=== PATIENT | male | born 1955 | race Caucasian/White ===

== ENCOUNTER → 2021-06-10 | Outpatient (REF) | payer MEDICARE, BC ==
[2021-06-10 17:17] LABS: APPEARANCE, URINE CLEAR (CLEAR); BACTERIA, URINE AUTO NEGATIVE (NEGATIVE); BILIRUBIN, URINE AUTO NEGATIVE (NEGATIVE); BLOOD, URINE BLOOD 1+ (NEGATIVE); COLOR, URINE YELLOW (YELLOW); GLUCOSE, URINE (UA) AUTO NEGATIVE (NEGATIVE); KETONE, URINE AUTO NEGATIVE (NEGATIVE); LEUKOCYTE ESTERASE, URINE AUTO NEGATIVE (NEGATIVE); NITRITE, URINE AUTO NEGATIVE (NEGATIVE); PROTEIN, URINE AUTO NEGATIVE (NEGATIVE); RBC, URINE AUTO 2 /HPF (0-3); SPECIFIC GRAVITY URINE AUTO 1.014 (1.002-1.035); SQUAMOUS EPITHELIAL CELL UR AU 0 /HPF (0-6); UROBILINOGEN, URINE AUTO 0.2 mg/dL (0.0-2.0); WBC, URINE AUTO 0 /HPF (0-3)
== END ==
LOC: M SMT 16:48
PROVIDERS: ATTEND Nurse Practitioner Family
DX: R35.1 Nocturia (principal)
CPT/HCPCS: 51798; 81001; 87086; G0463

== ENCOUNTER → 2021-08-11 | Outpatient (REF) | payer BC, MEDICARE ==
[2021-08-11 18:10] LABS: APPEARANCE, URINE CLEAR (CLEAR); BACTERIA, URINE AUTO NEGATIVE (NEGATIVE); BILIRUBIN, URINE AUTO NEGATIVE (NEGATIVE); BLOOD, URINE BLOOD NEGATIVE (NEGATIVE); COLOR, URINE YELLOW (YELLOW); GLUCOSE, URINE (UA) AUTO NEGATIVE (NEGATIVE); KETONE, URINE AUTO NEGATIVE (NEGATIVE); LEUKOCYTE ESTERASE, URINE AUTO NEGATIVE (NEGATIVE); NITRITE, URINE AUTO NEGATIVE (NEGATIVE); PROTEIN, URINE AUTO NEGATIVE (NEGATIVE); RBC, URINE AUTO 1 /HPF (0-3); SPECIFIC GRAVITY URINE AUTO 1.017 (1.002-1.035); SQUAMOUS EPITHELIAL CELL UR AU 0 /HPF (0-6); UROBILINOGEN, URINE AUTO 0.2 mg/dL (0.0-2.0); WBC, URINE AUTO 1 /HPF (0-3)
== END ==
LOC: M SMT 16:39
PROVIDERS: ATTEND Urology
DX: R35.1 Nocturia (principal)
CPT/HCPCS: 81001; G0463

== ENCOUNTER → 2022-04-21 | Outpatient (REF) | payer MEDICARE ==
[2022-04-21 13:42] LABS: APPEARANCE, URINE CLEAR (CLEAR); BACTERIA, URINE AUTO NEGATIVE (NEGATIVE); BILIRUBIN, URINE AUTO NEGATIVE (NEGATIVE); BLOOD, URINE BLOOD NEGATIVE (NEGATIVE); COLOR, URINE YELLOW (YELLOW); GLUCOSE, URINE (UA) AUTO NEGATIVE (NEGATIVE); KETONE, URINE AUTO NEGATIVE (NEGATIVE); LEUKOCYTE ESTERASE, URINE AUTO NEGATIVE (NEGATIVE); NITRITE, URINE AUTO NEGATIVE (NEGATIVE); PROTEIN, URINE AUTO NEGATIVE (NEGATIVE); RBC, URINE AUTO 1 /HPF (0-3); SPECIFIC GRAVITY URINE AUTO 1.013 (1.002-1.035); SQUAMOUS EPITHELIAL CELL UR AU 0 /HPF (0-6); UROBILINOGEN, URINE AUTO 0.2 mg/dL (0.0-2.0); WBC, URINE AUTO 1 /HPF (0-3)
== END ==
LOC: M SMT 12:54
PROVIDERS: ATTEND Urology
DX: Z79.899 Other long term (current) drug therapy (principal); Z80.51 Family history of malignant neoplasm of kidney

== ENCOUNTER → 2022-05-22 | Outpatient (CLI) | payer MEDICARE ==
[~2022-05-22] MED LIST: ASPI81TA26 PO; FLOM0.4C39 PO; OXYB10TA23 PO; PRAV40TA2 PO; TADA5TAB PO
== END ==
LOC: M LABSMTC 09:49
PROVIDERS: ATTEND Anesthesiology
DX: Z01.812 Encounter for preprocedural laboratory examination (principal); Z20.822 Contact with and (suspected) exposure to COVID-19

== ENCOUNTER 2022-05-26 11:53 | Day surgery (SDC) | payer MEDICARE ==
[~2022-05-26] VITALS: Ht 182.9 cm; Wt 95.3 kg
[~2022-05-26 11:53] MED LIST changes: +CIPROFLOXACIN 400 MG in IV 1 EA IV ONE
[2022-05-26] MEDS ORDERED: LIDOCAINE 2% 100MG/5ML SDV (FOR ANES.) As Ordered ONE (12:31)
[2022-05-26] MEDS ORDERED: propofoL 200 MG/20 ML VIAL As Ordered ONE (12:31)
[2022-05-26] MEDS ORDERED: fentaNYL 100 MCG/2 ML INJECTION As Ordered ONE ×3 (12:31→14:48)
[2022-05-26] MEDS ORDERED: MIDAZOLAM INJ 2MG/2ML VIAL (J2250 PER 1MG) As Ordered ONE (12:31)
[2022-05-26] MEDS ORDERED: ROCURONIUM BROMIDE 50 MG/5 ML VIAL As Ordered ONE (12:31)
[2022-05-26] MEDS ORDERED: ONDANSETRON 4MG 2ML VIAL As Ordered ONE (12:32)
[2022-05-26] MEDS ORDERED: dexameTHASONE 4 MG/ML 1ML VIAL (J1100 PER 1MG) As Ordered ONE (12:32)
[2022-05-26] MEDS ORDERED: LR 1,000 ML IV SCH ×2 (12:45→14:30)
[2022-05-26] MEDS ORDERED: SUGAMMADEX SODIUM 500 MG/5 ML VIAL (BRIDION) As Ordered ONE (13:49)
[2022-05-26] MEDS ORDERED: KETOROLAC 60MG 2ML VIAL As Ordered ONE (14:14)
[2022-05-26] MEDS ORDERED: PYRI1TAB5 PO (14:28)
[2022-05-26] MEDS ORDERED: BACT800T5 PO (14:28)
[2022-05-26] MEDS ORDERED: HYDR-3713 PO (14:28)
[2022-05-26] MEDS ORDERED: OXYB5TAB10 PO (14:28)
[2022-05-26] MEDS ORDERED: fentaNYL 100 MCG/2 ML INJECTION IV PRN (14:30)
[2022-05-26] MEDS ORDERED: ONDANSETRON 4MG 2ML VIAL IV PRN (14:30)
[2022-05-26] MEDS ORDERED: oxyCODONE 5MG TAB PO PRN (14:30)
[2022-05-26] MEDS ORDERED: HYDROMORPHONE HCL 0.5 MG/ 0.5 ML SYRINGE (J1170 PER 1) IV PRN (14:30)
[2022-05-26 15:30] VITALS: BP 130/75
== END 2022-05-26 15:53 | disposition home or self-care (01) ==
LOC: M SDC 11:53
PROVIDERS: ATTEND Urology
DX: N28.89 Other specified disorders of kidney and ureter (principal); E78.5 Hyperlipidemia, unspecified; K57.92 Diverticulitis of intestine, part unspecified, without perforation or abscess without bleeding; K21.9 Gastro-esophageal reflux disease without esophagitis; G45.9 Transient cerebral ischemic attack, unspecified; N40.0 Benign prostatic hyperplasia without lower urinary tract symptoms; Z79.82 Long term (current) use of aspirin; Z79.899 Other long term (current) drug therapy
CPT/HCPCS: 52234; 88108; 88305; 88307; J0744; J1100; J1885; J2250; J2405; J3010

== ENCOUNTER 2022-06-29 18:50 | Inpatient (IN) | payer MEDICARE ==
[~2022-06-29] VITALS: Ht 185.4 cm; Wt 95.3 kg
[~2022-06-29 18:50] MED LIST changes: +BACT800T5 PO; -CIPROFLOXACIN 400 MG in IV 1 EA IV ONE; +HYDR-3713 PO; +OXYB5TAB10 PO; +PYRI1TAB5 PO
[2022-06-29 21:20] VITALS: BP 141/70
[2022-06-29] MEDS ORDERED: OXYB10TA23 PO (22:17)
[2022-06-29] MEDS ORDERED: META28.32 PO (22:17)
[2022-06-29] MEDS ORDERED: ASPI-161 PO (22:17)
[2022-06-29] MEDS ORDERED: HOME MED LIST COMPLETE! XX SCH (22:25)
[2022-06-29] MEDS: TAMSULOSIN 0.4 MG CAP PO SCH (23:15)
[2022-06-29 23:20] LABS: HEMOGLOBIN 12.1 g/dl (13.5-17.5)
[2022-06-30 00:37] VITALS: BP 133/68
[2022-06-30 01:27] LABS: BILIRUBIN, URINE MANUAL NEGATIVE (NEGATIVE); GLUCOSE, URINE (UA) MANUAL NEGATIVE (NEGATIVE); KETONE, URINE MANUAL OBSCURED mg/dL (NEGATIVE); UROBILINOGEN, URINE MANUAL NORMAL (NORMAL)
[2022-06-30 01:30] LABS: RBC, URINE TNTC /hpf (0-3)
[2022-06-30 01:31] LABS: AMORPHOUS SEDIMENT, URINE SMALL AMOUNT (NEGATIVE); BACTERIA, URINE NONE SEEN; HYALINE CAST, URINE NONE SEEN /lpf (0-1); SQUAMOUS EPITHELIAL CELL URINE NONE SEEN /hpf (SMALL AMT)
[2022-06-30] MEDS: oxyBUTYnin 5 MG TAB PO SCH ×3 (01:54→20:19)
[2022-06-30 04:00] VITALS: BP 126/68
[2022-06-30 06:21] LABS: BASO % 0.6 % (0.0-1.0); EOS % 0.1 % (0.0-3.0); HEMATOCRIT 35.1 % (42.0-52.0); HEMOGLOBIN 11.8 g/dl (13.5-17.5); LYMPH # 1.7 10^3/uL (1.5-5.0); MEAN CORPUSCULAR HEMOGLOBIN 30.2 pg (27.0-33.0); MEAN CORPUSCULAR HGB CONC 33.6 g/dl (32.0-36.5); MEAN CORPUSCULAR VOLUME 89.8 fl (80.0-96.0); MONO # 0.5 10^3/uL (0.0-0.8); MONO % 7.6 % (2.0-8.0); NEUTROPHILS # 4.6 10^3/uL (1.5-8.5); NEUTROPHILS % 66.4 % (36.0-66.0); PLATELET COUNT, AUTOMATED 174 10^3/uL (150-450); RED BLOOD COUNT 3.91 10^6/uL (4.30-6.10)
[2022-06-30 06:53] LABS: BLOOD UREA NITROGEN 10 MG/DL (7-18); CALCIUM LEVEL 8.4 MG/DL (8.8-10.2); CARBON DIOXIDE LEVEL 25 MEQ/L (21-32); CHLORIDE LEVEL 109 MEQ/L (98-107); GLOMERULAR FILTRATION RATE > 60.0 (>49); GLUCOSE, FASTING 104 MG/DL (70-100); MAGNESIUM LEVEL 2.2 MG/DL (1.8-2.4); POTASSIUM SERUM 3.6 MEQ/L (3.5-5.1); SODIUM LEVEL 140 MEQ/L (136-145)
[2022-06-30 08:00] VITALS: BP 124/72
[2022-06-30] MEDS ORDERED: ACETAMINOPHEN 500 MG TAB PO PRN (10:10)
[2022-06-30 12:00] VITALS: BP 124/74
[2022-06-30 16:00] VITALS: BP 102/62
[2022-06-30] MEDS: cefTRIAXone SOD 1 GM in D5W MINI-BAG PLUS 50 ML IV SCH (17:45)
[2022-06-30] MEDS: TAMSULOSIN 0.4 MG CAP PO SCH (20:19)
[2022-06-30] MEDS ORDERED: ASPIRIN 81MG ENTERIC TABLET PO SCH (21:00)
[2022-06-30] MEDS: METAMUCIL (PSYLLIUM) PACKET PO SCH (21:17)
[2022-06-30] MEDS: PRAVASTATIN 20 MG TAB PO SCH (21:17)
[2022-06-30 22:00] VITALS: BP 123/64
[2022-07-01] VITALS: BP 139/72
[2022-07-01 04:00] VITALS: BP 120/77
[2022-07-01 07:55] VITALS: BP 109/57
[2022-07-01] MEDS: oxyBUTYnin 5 MG TAB PO SCH ×2 (08:25→19:46)
[2022-07-01 08:58] LABS: BASO % 0.6 % (0.0-1.0); EOS % 0.4 % (0.0-3.0); HEMATOCRIT 36.1 % (42.0-52.0); HEMOGLOBIN 12.2 g/dl (13.5-17.5); LYMPH # 1.3 10^3/uL (1.5-5.0); LYMPH % 23.1 % (24.0-44.0); MEAN CORPUSCULAR HEMOGLOBIN 30.7 pg (27.0-33.0); MEAN CORPUSCULAR HGB CONC 33.8 g/dl (32.0-36.5); MEAN CORPUSCULAR VOLUME 90.7 fl (80.0-96.0); MONO # 0.4 10^3/uL (0.0-0.8); MONO % 6.6 % (2.0-8.0); NEUTROPHILS # 3.7 10^3/uL (1.5-8.5); NEUTROPHILS % 68.9 % (36.0-66.0); PLATELET COUNT, AUTOMATED 155 10^3/uL (150-450); RED BLOOD COUNT 3.98 10^6/uL (4.30-6.10); WHITE BLOOD COUNT 5.4 10^3/uL (4.0-10.0)
[2022-07-01 09:30] LABS: BLOOD UREA NITROGEN 13 MG/DL (7-18); CALCIUM LEVEL 8.4 MG/DL (8.8-10.2); CARBON DIOXIDE LEVEL 25 MEQ/L (21-32); CHLORIDE LEVEL 109 MEQ/L (98-107); CREATININE FOR GFR 0.94 MG/DL (0.70-1.30); GLOMERULAR FILTRATION RATE > 60.0 (>49); GLUCOSE, FASTING 151 MG/DL (70-100); MAGNESIUM LEVEL 2.2 MG/DL (1.8-2.4); POTASSIUM SERUM 3.5 MEQ/L (3.5-5.1); SODIUM LEVEL 141 MEQ/L (136-145)
[2022-07-01 12:19] VITALS: BP 110/72
[2022-07-01 16:04] VITALS: BP 114/71
[2022-07-01] MEDS: cefTRIAXone SOD 1 GM in D5W MINI-BAG PLUS 50 ML IV SCH (17:23)
[2022-07-01] MEDS: METAMUCIL (PSYLLIUM) PACKET PO SCH (19:46)
[2022-07-01] MEDS: TAMSULOSIN 0.4 MG CAP PO SCH (19:46)
[2022-07-01] MEDS: PRAVASTATIN 20 MG TAB PO SCH (19:46)
[2022-07-01 20:00] VITALS: BP 135/74
[2022-07-02] VITALS (11 sets, daily range): BP systolic 103–128; BP diastolic 53–85
[2022-07-02] MEDS ORDERED: RAMELTEON 8 MG TAB (ROZEREM) PO PRN (00:35)
[2022-07-02 08:13] LABS: BASO % 0.7 % (0.0-1.0); EOS # 0.1 10^3/uL (0.0-0.5); EOS % 0.8 % (0.0-3.0); HEMATOCRIT 36.9 % (42.0-52.0); HEMOGLOBIN 12.6 g/dl (13.5-17.5); LYMPH # 1.4 10^3/uL (1.5-5.0); LYMPH % 23.9 % (24.0-44.0); MEAN CORPUSCULAR HEMOGLOBIN 30.7 pg (27.0-33.0); MEAN CORPUSCULAR HGB CONC 34.1 g/dl (32.0-36.5); MEAN CORPUSCULAR VOLUME 89.8 fl (80.0-96.0); MONO # 0.5 10^3/uL (0.0-0.8); NEUTROPHILS # 3.9 10^3/uL (1.5-8.5); NEUTROPHILS % 65.3 % (36.0-66.0); PLATELET COUNT, AUTOMATED 165 10^3/uL (150-450); RED BLOOD COUNT 4.11 10^6/uL (4.30-6.10)
[2022-07-02] MEDS: oxyBUTYnin 5 MG TAB PO SCH ×2 (08:31→20:00)
[2022-07-02 08:46] LABS: BLOOD UREA NITROGEN 12 MG/DL (7-18); CALCIUM LEVEL 8.8 MG/DL (8.8-10.2); CARBON DIOXIDE LEVEL 26 MEQ/L (21-32); CHLORIDE LEVEL 107 MEQ/L (98-107); CREATININE FOR GFR 0.87 MG/DL (0.70-1.30); GLOMERULAR FILTRATION RATE > 60.0 (>49); GLUCOSE, FASTING 118 MG/DL (70-100); MAGNESIUM LEVEL 2.2 MG/DL (1.8-2.4); POTASSIUM SERUM 3.9 MEQ/L (3.5-5.1); SODIUM LEVEL 139 MEQ/L (136-145)
[2022-07-02] MEDS ORDERED: ceFAZolin SOD 2 GM in IV 1 EA IV ONE (12:00)
[2022-07-02] MEDS ORDERED: NS 1,000 ML IV SCH (12:30)
[2022-07-02] MEDS ORDERED: propofoL 200 MG/20 ML VIAL As Ordered ONE (17:07)
[2022-07-02] MEDS ORDERED: ONDANSETRON 4MG 2ML VIAL As Ordered ONE (17:08)
[2022-07-02] MEDS ORDERED: dexameTHASONE 4 MG/ML 1ML VIAL (J1100 PER 1MG) As Ordered ONE (17:08)
[2022-07-02] MEDS ORDERED: LIDOCAINE 2% 100MG/5ML SDV (FOR ANES.) As Ordered ONE (17:08)
[2022-07-02] MEDS ORDERED: fentaNYL 100 MCG/2 ML INJECTION As Ordered ONE (17:09)
[2022-07-02] MEDS ORDERED: MIDAZOLAM INJ 2MG/2ML VIAL (J2250 PER 1MG) As Ordered ONE (17:09)
[2022-07-02] MEDS ORDERED: oxyCODONE 5MG TAB PO PRN (17:55)
[2022-07-02] MEDS ORDERED: ONDANSETRON 4MG 2ML VIAL IV PRN (17:55)
[2022-07-02] MEDS ORDERED: LR 1,000 ML IV SCH (17:55)
[2022-07-02] MEDS ORDERED: HYDROMORPHONE HCL 0.5 MG/ 0.5 ML SYRINGE (J1170 PER 1) IV PRN (17:55)
[2022-07-02] MEDS ORDERED: fentaNYL 100 MCG/2 ML INJECTION IV PRN (17:55)
[2022-07-02] MEDS: cefTRIAXone SOD 1 GM in D5W MINI-BAG PLUS 50 ML IV SCH (18:50)
[2022-07-02] MEDS: TAMSULOSIN 0.4 MG CAP PO SCH (19:59)
[2022-07-02] MEDS: METAMUCIL (PSYLLIUM) PACKET PO SCH (19:59)
[2022-07-02] MEDS: PRAVASTATIN 20 MG TAB PO SCH (19:59)
[2022-07-03 03:50] VITALS: BP 112/67
[2022-07-03 07:30] VITALS: BP 126/73
[2022-07-03 09:10] LABS: BASO % 0.4 % (0.0-1.0); EOS % 0.3 % (0.0-3.0); HEMATOCRIT 37.2 % (42.0-52.0); HEMOGLOBIN 12.7 g/dl (13.5-17.5); LYMPH # 1.3 10^3/uL (1.5-5.0); MEAN CORPUSCULAR HEMOGLOBIN 30.2 pg (27.0-33.0); MEAN CORPUSCULAR HGB CONC 34.1 g/dl (32.0-36.5); MEAN CORPUSCULAR VOLUME 88.6 fl (80.0-96.0); MONO # 0.4 10^3/uL (0.0-0.8); NEUTROPHILS # 5.2 10^3/uL (1.5-8.5); NEUTROPHILS % 74.7 % (36.0-66.0); PLATELET COUNT, AUTOMATED 199 10^3/uL (150-450)
[2022-07-03] MEDS: oxyBUTYnin 5 MG TAB PO SCH (09:14)
[2022-07-03 09:40] LABS: BLOOD UREA NITROGEN 11 MG/DL (7-18); CALCIUM LEVEL 9.1 MG/DL (8.8-10.2); CARBON DIOXIDE LEVEL 27 MEQ/L (21-32); CHLORIDE LEVEL 108 MEQ/L (98-107); CREATININE FOR GFR 0.85 MG/DL (0.70-1.30); GLOMERULAR FILTRATION RATE > 60.0 (>49); GLUCOSE, FASTING 152 MG/DL (70-100); POTASSIUM SERUM 3.8 MEQ/L (3.5-5.1); SODIUM LEVEL 140 MEQ/L (136-145)
[2022-07-03] MEDS ORDERED: CEFD300C41 PO (10:48)
[2022-07-03 11:30] VITALS: BP 112/64
== END 2022-07-03 13:30 | disposition home or self-care (01) | DRG 696 ==
LOC: INTOOBSV 21:15 → M 4MAIN 21:15 → OBSVTOIN 07-01 13:37
PROVIDERS: ADMIT Internal Medicine; ATTEND Internal Medicine
PROC: 0TCB8ZZ Extirpation of Matter from Bladder, Via Natural or Artificial Opening Endoscopic (ICD-10-PCS; principal; 2022-07-02 11:45)
DX: R31.0 Gross hematuria (principal); N32.89 Other specified disorders of bladder; E78.00 Pure hypercholesterolemia, unspecified; R35.1 Nocturia; N40.1 Benign prostatic hyperplasia with lower urinary tract symptoms; N52.9 Male erectile dysfunction, unspecified; Z86.73 Personal history of transient ischemic attack (TIA), and cerebral infarction without residual deficits; R31.21 Asymptomatic microscopic hematuria; Z79.82 Long term (current) use of aspirin; Z79.899 Other long term (current) drug therapy; Z80.51 Family history of malignant neoplasm of kidney; Z90.49 Acquired absence of other specified parts of digestive tract

== ENCOUNTER → 2022-07-14 | Outpatient (REF) | payer MEDICARE ==
[~2022-07-14] MED LIST changes: +ASPI-161 PO; +CEFD300C41 PO; +META28.32 PO
[2022-07-14 19:48] LABS: APPEARANCE, URINE MANUAL HAZY (CLEAR); COLOR, URINE MANUAL YELLOW (YELLOW)
[2022-07-14 19:52] LABS: BILIRUBIN, URINE MANUAL NEGATIVE (NEGATIVE); BLOOD URINE MANUAL POSITIVE (NEGATIVE); GLUCOSE, URINE (UA) MANUAL NEGATIVE (NEGATIVE); KETONE, URINE MANUAL NEGATIVE (NEGATIVE); LEUKOCYTE ESTERASE, URINE MAN POSITIVE (NEGATIVE); NITRITE, URINE MANUAL NEGATIVE (NEGATIVE); PROTEIN, URINE MANUAL 2+ mg/dL (NEGATIVE); SPECIFIC GRAVITY,URINE MANUAL 1.025 (1.002-1.035); UROBILINOGEN, URINE MANUAL NORMAL (NORMAL)
[2022-07-14 20:06] LABS: RBC, URINE 15-20 /hpf (0-3); WBC, URINE 20-30 /hpf (0-3)
[2022-07-14 20:07] LABS: AMORPHOUS SEDIMENT, URINE LARGE AMOUNT (NEGATIVE); BACTERIA, URINE SMALL AMOUNT; CALCIUM OXALATE CRYSTALS,URINE SMALL AMOUNT /hpf; HYALINE CAST, URINE NONE SEEN /lpf (0-1); MUCUS, URINE SMALL AMOUNT (NEGATIVE); SQUAMOUS EPITHELIAL CELL URINE SMALL AMOUNT /hpf (SMALL AMT)
== END ==
LOC: M SMT 16:44
PROVIDERS: ATTEND Urology
DX: R31.0 Gross hematuria (principal)

== ENCOUNTER → 2022-07-31 | Outpatient (CLI) | payer MEDICARE | LOC: M LABSMTC 09:53 | PROVIDERS: ATTEND Anesthesiology | DX: Z01.812 Encounter for preprocedural laboratory examination (principal); Z20.822 Contact with and (suspected) exposure to COVID-19 ==

== ENCOUNTER 2022-08-04 06:39 | Day surgery (SDC) | payer MEDICARE ==
[~2022-08-04] VITALS: Ht 185.4 cm; Wt 92.7 kg
[~2022-08-04 06:39] MED LIST changes: +ceFAZolin SOD 2 GM in IV 1 EA IV ONE
[2022-08-04] MEDS ORDERED: LR 1,000 ML IV SCH (07:00)
[2022-08-04] MEDS ORDERED: LIDOCAINE 2% 100MG/5ML SDV (FOR ANES.) As Ordered ONE (07:55)
[2022-08-04] MEDS ORDERED: propofoL 200 MG/20 ML VIAL As Ordered ONE (07:55)
[2022-08-04] MEDS ORDERED: dexameTHASONE 4 MG/ML 1ML VIAL (J1100 PER 1MG) As Ordered ONE (07:56)
[2022-08-04] MEDS ORDERED: MIDAZOLAM INJ 2MG/2ML VIAL (J2250 PER 1MG) As Ordered ONE (07:56)
[2022-08-04] MEDS ORDERED: fentaNYL 100 MCG/2 ML INJECTION As Ordered ONE (07:56)
[2022-08-04] MEDS ORDERED: ONDANSETRON 4MG 2ML VIAL As Ordered ONE (07:56)
[2022-08-04] MEDS ORDERED: ISOVUE-300 61% 50ML VIAL As Ordered ONE (08:54)
[2022-08-04] MEDS ORDERED: ACETAMINOPHEN 1000MG 100ML IV BTL (OFIRMEV) (J0131 PER 10MG) As Ordered ONE (09:37)
[2022-08-04] MEDS ORDERED: BACT800T5 PO (09:55)
[2022-08-04 10:55] VITALS: BP 139/76
== END 2022-08-04 11:13 | disposition home or self-care (01) ==
LOC: M SDC 06:39
PROVIDERS: ATTEND Urology
DX: R31.0 Gross hematuria (principal); E78.00 Pure hypercholesterolemia, unspecified; N40.1 Benign prostatic hyperplasia with lower urinary tract symptoms; E29.1 Testicular hypofunction; K21.9 Gastro-esophageal reflux disease without esophagitis; Z86.73 Personal history of transient ischemic attack (TIA), and cerebral infarction without residual deficits; Z79.82 Long term (current) use of aspirin; Z79.899 Other long term (current) drug therapy
CPT/HCPCS: 52235; 74420; 88108; 88305; J0131; J0690; J1100; J2250; J2405; J3010; Q9967

== ENCOUNTER → 2022-08-17 | Outpatient (REF) | payer MEDICARE ==
[~2022-08-17] MED LIST changes: -ceFAZolin SOD 2 GM in IV 1 EA IV ONE
[2022-08-17 15:26] LABS: APPEARANCE, URINE MANUAL CLEAR (CLEAR); COLOR, URINE MANUAL LT YELLOW (YELLOW); PH,URINE MAN 5.5 UNITS (5.0 - 7.0)
[2022-08-17 15:27] LABS: BILIRUBIN, URINE MANUAL NEGATIVE (NEGATIVE); BLOOD URINE MANUAL POSITIVE (NEGATIVE); GLUCOSE, URINE (UA) MANUAL NEGATIVE (NEGATIVE); KETONE, URINE MANUAL NEGATIVE (NEGATIVE); NITRITE, URINE MANUAL NEGATIVE (NEGATIVE); PROTEIN, URINE MANUAL TRACE mg/dL (NEGATIVE); UROBILINOGEN, URINE MANUAL NORMAL (NORMAL)
[2022-08-17 15:28] LABS: LEUKOCYTE ESTERASE, URINE MAN NEGATIVE (NEGATIVE)
[2022-08-17 16:06] LABS: BACTERIA, URINE NONE SEEN; HYALINE CAST, URINE NONE SEEN /lpf (0-1); RBC, URINE 0-1 /hpf (0-3); SQUAMOUS EPITHELIAL CELL URINE SMALL AMOUNT /hpf (SMALL AMT); WBC, URINE 0-1 /hpf (0-3)
== END ==
LOC: M SMT 15:15
PROVIDERS: ATTEND Urology
DX: R35.0 Frequency of micturition (principal)

== ENCOUNTER → 2022-10-26 | Outpatient (REF) | payer MEDICARE ==
[2022-10-26 14:22] LABS: APPEARANCE, URINE MANUAL CLEAR (CLEAR); BILIRUBIN, URINE MANUAL NEGATIVE (NEGATIVE); BLOOD URINE MANUAL NEGATIVE (NEGATIVE); COLOR, URINE MANUAL YELLOW (YELLOW); GLUCOSE, URINE (UA) MANUAL NEGATIVE (NEGATIVE); KETONE, URINE MANUAL NEGATIVE (NEGATIVE); LEUKOCYTE ESTERASE, URINE MAN NEGATIVE (NEGATIVE); NITRITE, URINE MANUAL NEGATIVE (NEGATIVE); PROTEIN, URINE MANUAL NEGATIVE (NEGATIVE); UROBILINOGEN, URINE MANUAL NORMAL (NORMAL)
== END ==
LOC: M SMT 12:45
PROVIDERS: ATTEND Urology
DX: Z87.898 Personal history of other specified conditions (principal); R82.998 Other abnormal findings in urine

== ENCOUNTER → 2023-04-26 | Outpatient (REF) | payer MEDICARE | LOC: M LABSMT 09:14 | PROVIDERS: ATTEND Urology | DX: R31.0 Gross hematuria (principal) ==

== ENCOUNTER → 2023-11-14 | Outpatient (REF) | payer MEDICARE ==
[~2023-11-14] MED LIST changes: +CEFD1CAP9 PO; -CEFD300C41 PO; -OXYB5TAB10 PO; +OXYB5TAB11 PO
[2023-11-14 13:25] LABS: APPEARANCE, URINE CLEAR (CLEAR); BACTERIA, URINE AUTO NEGATIVE (NEGATIVE); BILIRUBIN, URINE AUTO NEGATIVE (NEGATIVE); BLOOD, URINE BLOOD 1+ (NEGATIVE); COLOR, URINE STRAW (YELLOW); GLUCOSE, URINE (UA) AUTO NEGATIVE (NEGATIVE); KETONE, URINE AUTO NEGATIVE (NEGATIVE); LEUKOCYTE ESTERASE, URINE AUTO NEGATIVE (NEGATIVE); NITRITE, URINE AUTO NEGATIVE (NEGATIVE); PROTEIN, URINE AUTO NEGATIVE (NEGATIVE); RBC, URINE AUTO 21 /HPF (0-3); SPECIFIC GRAVITY URINE AUTO 1.006 (1.002-1.035); SQUAMOUS EPITHELIAL CELL UR AU 0 /HPF (0-6); UROBILINOGEN, URINE AUTO 0.2 mg/dL (0.0-2.0); WBC, URINE AUTO 0 /HPF (0-3)
== END ==
LOC: M SMT 13:01
PROVIDERS: ATTEND Urology
DX: Z87.898 Personal history of other specified conditions (principal)

== ENCOUNTER → 2024-05-15 | Outpatient (REF) | payer MEDICARE ==
[~2024-05-15] MED LIST changes: -ASPI-161 PO; +ASPI-615 PO; -OXYB5TAB11 PO; +OXYB5TAB14 PO
[2024-05-15 13:40] LABS: APPEARANCE, URINE HAZY (CLEAR); BACTERIA, URINE AUTO NEGATIVE (NEGATIVE); BILIRUBIN, URINE AUTO NEGATIVE (NEGATIVE); BLOOD, URINE BLOOD NEGATIVE (NEGATIVE); COLOR, URINE YELLOW (YELLOW); GLUCOSE, URINE (UA) AUTO NEGATIVE (NEGATIVE); KETONE, URINE AUTO NEGATIVE (NEGATIVE); LEUKOCYTE ESTERASE, URINE AUTO NEGATIVE (NEGATIVE); NITRITE, URINE AUTO NEGATIVE (NEGATIVE); PROTEIN, URINE AUTO NEGATIVE (NEGATIVE); RBC, URINE AUTO 12 /HPF (0-3); SPECIFIC GRAVITY URINE AUTO 1.016 (1.002-1.035); SQUAMOUS EPITHELIAL CELL UR AU 0 /HPF (0-6); UROBILINOGEN, URINE AUTO 0.2 mg/dL (0.0-2.0); WBC, URINE AUTO 2 /HPF (0-3)
== END ==
LOC: M SMT 12:45
PROVIDERS: ATTEND Urology
DX: Z87.898 Personal history of other specified conditions (principal)

== ENCOUNTER → 2024-11-29 | Outpatient (REF) | payer MEDICARE ==
[~2024-11-29] MED LIST changes: -TADA5TAB PO; +TADA5TAB94 PO
[2024-11-29 10:49] LABS: APPEARANCE, URINE CLEAR (CLEAR); BACTERIA, URINE AUTO NEGATIVE (NEGATIVE); BILIRUBIN, URINE AUTO NEGATIVE (NEGATIVE); BLOOD, URINE BLOOD NEGATIVE (NEGATIVE); COLOR, URINE YELLOW (YELLOW); GLUCOSE, URINE (UA) AUTO NEGATIVE (NEGATIVE); KETONE, URINE AUTO NEGATIVE (NEGATIVE); LEUKOCYTE ESTERASE, URINE AUTO NEGATIVE (NEGATIVE); NITRITE, URINE AUTO NEGATIVE (NEGATIVE); PROTEIN, URINE AUTO NEGATIVE (NEGATIVE); RBC, URINE AUTO 2 /HPF (0-3); SPECIFIC GRAVITY URINE AUTO 1.009 (1.002-1.035); SQUAMOUS EPITHELIAL CELL UR AU 0 /HPF (0-6); UROBILINOGEN, URINE AUTO 0.2 mg/dL (0.0-2.0); WBC, URINE AUTO 0 /HPF (0-3)
== END ==
LOC: M SMT 09:43
PROVIDERS: ATTEND Urology
DX: Z87.898 Personal history of other specified conditions (principal)

== ENCOUNTER → 2025-06-20 | Outpatient (REF) | payer MEDICARE ==
[~2025-06-20] MED LIST changes: -FLOM0.4C39 PO; -PRAV40TA2 PO; +PRAV40TA85 PO; +TADA5TAB2 PO; -TADA5TAB94 PO; +TAMS-18 PO
[2025-06-20 16:03] LABS: APPEARANCE, URINE CLEAR (CLEAR); BACTERIA, URINE AUTO NEGATIVE (NEGATIVE); BILIRUBIN, URINE AUTO NEGATIVE (NEGATIVE); BLOOD, URINE BLOOD NEGATIVE (NEGATIVE); GLUCOSE, URINE (UA) AUTO NEGATIVE (NEGATIVE); KETONE, URINE AUTO NEGATIVE (NEGATIVE); LEUKOCYTE ESTERASE, URINE AUTO NEGATIVE (NEGATIVE); NITRITE, URINE AUTO NEGATIVE (NEGATIVE); PROTEIN, URINE AUTO NEGATIVE (NEGATIVE); RBC, URINE AUTO 0 /HPF (0-3); SPECIFIC GRAVITY URINE AUTO 1.006 (1.002-1.035); SQUAMOUS EPITHELIAL CELL UR AU 0 /HPF (0-6); UROBILINOGEN, URINE AUTO 0.2 mg/dL (0.0-2.0); WBC, URINE AUTO 0 /HPF (0-3)
== END ==
LOC: M SMT 15:14
PROVIDERS: ATTEND Urology
DX: Z87.898 Personal history of other specified conditions (principal); N20.0 Calculus of kidney

== ENCOUNTER → 2025-11-24 | Outpatient (REF) | payer MEDICARE ==
[2025-11-24 13:41] LABS: APPEARANCE, URINE CLEAR (CLEAR); BACTERIA, URINE AUTO NEGATIVE (NEGATIVE); BILIRUBIN, URINE AUTO NEGATIVE (NEGATIVE); BLOOD, URINE BLOOD NEGATIVE (NEGATIVE); GLUCOSE, URINE (UA) AUTO NEGATIVE (NEGATIVE); KETONE, URINE AUTO NEGATIVE (NEGATIVE); LEUKOCYTE ESTERASE, URINE AUTO NEGATIVE (NEGATIVE); NITRITE, URINE AUTO NEGATIVE (NEGATIVE); PROTEIN, URINE AUTO NEGATIVE (NEGATIVE); RBC, URINE AUTO 0 /HPF (0-3); SPECIFIC GRAVITY URINE AUTO 1.012 (1.002-1.035); SQUAMOUS EPITHELIAL CELL UR AU 0 /HPF (0-6); UROBILINOGEN, URINE AUTO 0.2 mg/dL (0.0-2.0); WBC, URINE AUTO 0 /HPF (0-3)
== END ==
LOC: M SMT 12:53
PROVIDERS: ATTEND Urology
DX: R31.0 Gross hematuria (principal)